=== PATIENT | female | born 1940 | race Caucasian/White ===

== ENCOUNTER 2016-10-23 16:34 | Emergency (ER) | payer OTHER, BC ==
[2016-10-23 16:42] VITALS: BP 162/82; PULSE 87; TEMP 98.3; BMI 19.7
[2016-10-23] MEDS ORDERED: DIPHTH,PERTUSS(ACELL),TET 0.5 ML DISP.SYRIN IM ONE (17:30)
--- NOTE | 2016-10-23 17:30 | PDOC ---
History of Present Illness - General Chief Complaint: Foreign Body (FB) Stated Complaint: FISH HOOK IN LEFT THUMB Time Seen by Provider: 10/23/16 16:58 History Source: Patient Exam Limitations: No Limitations - History of Present Illness Initial Comments: CHIEF COMPLAINT: 76 y/o female with fish hook stuck in left thumb. HISTORY OF PRESENT ILLNESS: Pt was trying to remove grandson's fish hook from her rug when it got stuck in her left thumb. She states it is serrated at the tip. She is unsure of her tetanus status. REVIEW OF SYSTEMS: GENERAL/CONSTITUTIONAL: No fever/chills. No weakness. No weight change. MUSCULOSKELETAL: No joint or muscle swelling or pain. No neck or back pain. SKIN: +fish hook left thumb. PHYSICAL EXAM: VITAL_SIGNS: within normal limits GENERAL_APPEARANCE: alert, cooperative, no obvious discomfort. MENTAL_STATUS: speech clear, oriented X 3, responds appropriately to questions. NEURO: motor intact and sensory intact in injured extremity. EXTREMITIES: Fish hook stuck superficially into pad of left thumb. SKIN: warm, dry, good color. Past History - Past Medical History Allergies/Adverse Reactions: Allergies Allergy/AdvReac Type Severity Reaction Status Date / Time levofloxacin [From Levaquin] Allergy Verified 10/23/16 16:44 Sulfa (Sulfonamide Allergy Rash Verified 10/23/16 16:42 Antibiotics) Asthma: Yes COPD: Yes - Surgical History Abdominal Surgery: Yes (HERNIA) - Psycho/Social/Smoking Cessation Hx Suicidal Ideation: No Smoking History: Never smoked Hx Alcohol Use: No Drug/Substance Use Hx: No *Physical Exam - Vital Signs Last Vital Signs Temp Pulse Resp BP Pulse Ox 98.3 F 87 20 162/82 97 10/23/16 16:39 10/23/16 16:39 10/23/16 16:39 10/23/16 16:39 10/23/16 16:39 Procedures - Incision and Drainage I&D Site: Left: Other (finger) Anesthesia: 1% Lidocaine (performed digital block of affected finger) Volume(ml): 3 Blade Size: 11 Attempts: 1 Iodinated Packin/ in Complications: none - Laceration/Wound Repair Left Distal Volar 1st digit Wound Length: to 2.5 cm Wound Explored: clean Wound's Depth, Shape: superficial, linear Irrigated w/ Saline: Yes Betadine Prep: No (Cleansed with hydrogen peroxide) Anesthesia: 1% Lidocaine Amount of Anesthetic (ccs): 3 Wound Debrided: minimal Wound Repaired With: Sutures Suture Size/Type: 4:0 Number of Sutures: 2 Sterile Dressing Applied: Yes Medical Decision Making - Medical Decision Making A/P: 76 y/o female with fish hook stuck in left thumb pad. Performed digital block. was able to use an 11 blade to open area and remove hook. Cleaned wound and sutured closed with 2 sutures. Pt given tetanus shot. Instructed her to keep area clean and dry and return to the ER or her PCP in 7-10 days for suture removal. The patient verbalizes understanding of all instructions, has no further questions and is awaiting discharge. *DC/Admit/Observation/Transfer Diagnosis at time of Disposition: Laceration Foreign body in hand Qualifiers: Encounter type: initial encounter Laterality: left Qualified Code(s): S60.552A - Superficial foreign body of left hand, initial encounter - Discharge Dispostion Disposition: HOME Condition at time of disposition: Improved - Referrals Referrals: Keyur Partida MD [Primary Care Provider] - - Patient Instructions Printed Discharge Instructions: DI for Laceration Repair -- Finger Additional Instructions: Discharge Instructions: -You received a tetanus shot today; you are now covered for 10 years -Keep wound dry for 24 hours; after that wash gently with soap and water -Keep wound covered to prevent infection -Return to the ER or your doctor's office in 7-10 days to have stitches removed
== END 2016-10-23 17:37 | disposition home or self-care (01) ==
LOC: JERFT 16:34
PROC: 0JCK0ZZ Extirpation of Matter from Left Hand Subcutaneous Tissue and Fascia, Open Approach (ICD-10-PCS; principal; 2016-10-23)
PROC: 0JQK0ZZ Repair Left Hand Subcutaneous Tissue and Fascia, Open Approach (ICD-10-PCS; 2016-10-23)
PROC: 3E0234Z Introduction of Serum, Toxoid and Vaccine into Muscle, Percutaneous Approach (ICD-10-PCS; 2016-10-23)
DX: S60.352A Superficial foreign body of left thumb, initial encounter (principal); W45.8XXA Other foreign body or object entering through skin, initial encounter; Y93.89 Activity, other specified; Y92.018 Other place in single-family (private) house as the place of occurrence of the external cause
CPT/HCPCS: 20103; 90471; 90715; 99281-25

== ENCOUNTER 2020-04-16 12:43 | Emergency (ER) | payer OTHER, BC ==
[2020-04-16 12:57] VITALS: BP 104/88; PULSE 75; TEMP 97.9; BMI 18.9
[2020-04-16] MEDS ORDERED: LIDOCAINE HCL 1%, 10 MG/ML (50 mL VIAL) INF ONE (14:04)
[2020-04-16] MEDS ORDERED: LIDOCAINE HCL 1%, 10 MG/ML (20ML VIAL) ONE (14:06)
== END 2020-04-16 15:37 | disposition home or self-care (01) ==
LOC: FER 12:43
DX: S61.411A Laceration without foreign body of right hand, initial encounter (principal)
CPT/HCPCS: 73130-TC-RT-FY; 99284-25